=== PATIENT | male | born 1950 | race Hispanic/Latino ===

== ENCOUNTER 2019-06-25 14:22 | Outpatient (CLI) | payer OTHER ==
--- NOTE | 2019-06-25 16:14 | ULT ---
CAROTID ULTRASOUND: HISTORY: Syncope. COMPARISON: None. TECHNIQUE: Meade-scale, color-flow, and Doppler imaging with spectral wave-form analysis is performed in the ponce tid vertebral arteries. FINDINGS: Right carotid: No significant atherosclerotic disease. The peak systolic velocity of the common car otid artery is 81.7 cm per second. The peak systolic velocity in the internal carotid artery is 77.2 cm per second. Systolic ICA to CCA ratio is 0.94. Left carotid: No significant atherosclerotic disease. The peak systolic velocity in the common ponce tid artery is 79.9 cm per second. The peak systolic velocity in the internal carotid artery is 60.4 cm per second. Systolic ICA to CCA ratio is 0.76. Antegrade flow in both vertebral arteries. IMPRESSION: No sonographic evidence of hemodynamically significant stenosis. POS: OFF
== END 2019-06-25 14:23 | disposition home or self-care (01) ==
LOC: BICULT 14:22
PROVIDERS: ATTEND Family Medicine
DX: R55 Syncope and collapse (principal)
CPT/HCPCS: 93880

== ENCOUNTER 2019-10-17 14:06 | Outpatient (CLI) | payer OTHER ==
--- NOTE | 2019-10-17 14:35 | RAD ---
PA AND LATERAL CHEST: 10/17/19 HISTORY: Dyspnea. COMPARISON: 08/02/13 study. Heart size is within normal limits. Aorta is mildly tortuous. The lungs are clear of infiltrates. No pulmonary nodules. Arthritic changes of the spine are noted. IMPRESSION: No active intrathoracic disease. Stable chest. POS: [facility]
== END 2019-10-17 14:07 | disposition home or self-care (01) ==
LOC: RAD 14:06
PROVIDERS: ATTEND Internal Medicine Critical Care Medicine
DX: R06.00 Dyspnea, unspecified (principal)
CPT/HCPCS: 71046

== ENCOUNTER 2019-12-13 18:30 | Outpatient (CLI) | payer MEDICARE, OTHER | END 2019-12-13 18:31 | disposition home or self-care (01) | LOC: SLEEPLAB 18:30 | PROVIDERS: ATTEND Internal Medicine Critical Care Medicine | DX: G47.33 Obstructive sleep apnea (adult) (pediatric) (principal); G47.31 Primary central sleep apnea | CPT/HCPCS: 95806 ==

== ENCOUNTER 2020-10-14 06:42 | Outpatient (CLI) | payer MEDICARE ==
[2020-10-14 11:41] LABS: Hemoglobin 14.9 g/dL (14.0-18.0); Mean Corpuscular HGB CONC 34.2 G/DL (32.0-36.0); Mean Corpuscular Hemoglobin 32.2 PG (27.0-33.0); Mean Corpuscular Volume 94.2 fl (80.0-100.0); Mean Platelet Volume 9.7 fl (7.4-10.4); Platelet Count 242 10x3/uL (130-400); Red Blood Cell (RBC) Count 4.63 10x6/uL (4.40-5.80); White Blood Cell (WBC) Count 6.5 10x3/uL (4.5-11.0)
[2020-10-14 11:43] LABS: Clarity Clear (Clear); Specific Gravity, Urine 1.015 (1.002-1.036)
[2020-10-14 11:44] LABS: Bilirubin Neg (Negative); Blood, Urine Negative (Negative); Glucose, Urine (Dipstick) Normal (Negative); Ketone, Urine Negative (Negative); Leukocyte Negative (Negative); Nitrite Negative (Negative); Protein, Urine (Dipstick) Negative (Neg-Trace); Urobilinogen Normal mg/dL (Less than 2); pH, Urine 6.5 (5.0-9.0)
[2020-10-14 12:04] LABS: Anion Gap 11 mmol/L (10-20); BUN (Urea Nitrogen) 13 mg/dL (8.4-25.7); Calc. Creatinine Clearance 0 mL/min (70-130); Calcium 9.1 mg/dL (7.8-10.44); Carbon Dioxide 29 mmol/L (23-31); Chloride 105 mmol/L (98-107); Estimated GFR-MDRD Greater than 90; Glucose 97 mg/dL (80-115); Potassium 3.7 mmol/L (3.5-5.1); Sodium 141 mmol/L (136-145)
[2020-10-14 12:07] LABS: RBC/HPF None Seen HPF (0-3); Squamous Epithelial None Seen HPF (0-3); WBC/HPF None Seen HPF (0-3)
[2020-10-14 12:08] LABS: Bacteria/HPF None Seen HPF (None Seen)
[2020-10-15 03:02] LABS: SARS-CoV-2 MS2 Positive; SARS-CoV-2 N Gene Negative; SARS-CoV-2 S Gene Negative; SARS-CoV-2 by NAA Not Detected (NotDetected); SARS-CoV-2 orf1ab Negative
--- NOTE | 2020-10-15 07:10 | EKG ---
Test Reason : PREOP Blood Pressure : / mmHG Vent. Rate : 076 BPM Atrial Rate : 076 BPM P-R Int : 142 ms QRS Dur : 086 ms QT Int : 372 ms P-R-T Axes : 060 000 049 degrees QTc Int : 418 ms Normal sinus rhythm Normal ECG Confirmed by DR. Kelly GARCIA ([id number]) on 10/15/2020 7:10:31 AM Referred By: NADJA Confirmed By:DR. Kelly GARCIA
== END 2020-10-14 06:43 | disposition home or self-care (01) ==
LOC: LABBT 06:42
PROVIDERS: ATTEND Urology
DX: Z01.818 Encounter for other preprocedural examination (principal); N40.0 Benign prostatic hyperplasia without lower urinary tract symptoms; Z20.828 Contact with and (suspected) exposure to other viral communicable diseases
CPT/HCPCS: 80048; 81001; 85027; 87086; 93005; U0003; 87635; 93010

== ENCOUNTER 2020-10-17 06:03 | Day surgery (SDC) | payer MEDICARE ==
[2020-10-16 10:23] VITALS: BMI 29.0
[2020-10-17] MEDS ORDERED: Levofloxacin 500 mg/D5W 100 ml Premix Bag ONE (06:20)
[2020-10-17] MEDS ORDERED: Propofol 1,000 MG/100 ML VIAL IV ONE (06:35)
[2020-10-17] MEDS ORDERED: Midazolam HCl 2 mg/2 ml Vial ONE (06:35)
[2020-10-17] MEDS ORDERED: Fentanyl 100 MCG/2 ML VIAL ONE (06:35)
--- NOTE | 2020-10-17 08:40 | OP ---
DATE OF PROCEDURE: 10/17/2020 PREOPERATIVE DIAGNOSIS: Enlarged prostate with lower urinary tract symptoms. POSTOPERATIVE DIAGNOSIS: Enlarged prostate with lower urinary tract symptoms. PROCEDURE: UroLift. ANESTHESIA: TIVA. COMPLICATIONS: None. ESTIMATED BLOOD LOSS: Minimal. SPECIMEN: None. FINDINGS: Large median lobe, loose bulbar stricture. DESCRIPTION OF PROCEDURE: After informed consent, the patient was taken to the operating room, transferred to the table on his own power. Anesthesia was established. A time-out was performed showing the correct patient, site, and procedure. Preoperative antibiotics were administered. He was prepped and draped in the lithotomy position. The 20-[place] cystoscope was advanced through the urethra noting a loose bulbar stricture easily passed by the scope. The prostate was then entered noting coapting lateral lobes and a large median lobe. The bladder was entered and systematically examined noting no mucosal abnormalities, he does have moderate trabeculation with cellules throughout. The UroLift delivery device was inserted and the bladder neck treated left side, then right side. We then treated the distal prostate coming back to the verumontanum treating again left side, then right. He had an area of persistent obstruction in the mid prostate on the left side, which was also treated. I then turned my attention to his median lobe affixing the base of the median lobe to the right lateral lobe and then deploying 2 more implants further up on the median lobe until it was fixed out of the way with no persistent obstruction. On further examination, he then had persistent obstruction at the bladder neck on the left side and so a final implant was placed here. Total number of implants nine. At the end of the case, an excellent anterior channel. His bladder was drained and then refilled with about 150 to 200 mL of saline to allow for a void trial in recovery. He was awoken from anesthesia, transferred back to his hospital bed and taken to PACU in stable condition, where he will discharge home upon recovery. Job ID: [id number]
[2020-10-17] MEDS ORDERED: ePHEDrine 50 MG/ML VIAL ONE (10:21)
[2020-10-17] MEDS ORDERED: PHENYLEPHRINE-NS 100 MCG/ML 10 ML SYRINGE ONE (10:21)
== END 2020-10-17 09:40 | disposition home or self-care (01) ==
LOC: SDC 06:03
PROVIDERS: ATTEND Urology
PROC: 0T7D8DZ Dilation of Urethra with Intraluminal Device, Via Natural or Artificial Opening Endoscopic (ICD-10-PCS; principal; 2020-10-17)
DX: N40.1 Benign prostatic hyperplasia with lower urinary tract symptoms (principal); N13.8 Other obstructive and reflux uropathy; N35.912 Unspecified bulbous urethral stricture, male; N32.89 Other specified disorders of bladder; N52.01 Erectile dysfunction due to arterial insufficiency; Z87.891 Personal history of nicotine dependence; Z79.82 Long term (current) use of aspirin; Z79.899 Other long term (current) drug therapy
CPT/HCPCS: C1889; C9740; J1956; J2250; J2704; J3010; J3490

== ENCOUNTER 2021-02-26 15:29 | Observation (INO) | payer MEDICARE ==
[~2021-02-26 15:29] MED LIST: Iopamidol-370 76% 500 ML 1 ML ONE
[2021-02-26 16:42] LABS: #Basophils 0.1 thou/uL (0.0-0.2); #Eosinphils 0.3 thou/uL (0.0-0.7); #Lymphocytes 2.3 thou/uL (1.20-3.40); #Monocytes 0.5 thou/uL (0.11-0.59); #Neutrophils 5.3 thou/uL (1.40-6.50); %Basophils 0.7 % (0.0-1.0); %Eosinophils 3.8 % (0.0-10.0); %Lymphocytes 27.1 % (21.0-51.0); %Monocytes 5.9 % (0.0-10.0); %Neutrophils 62.5 % (42.0-75.0); Hemoglobin 14.7 g/dL (14.0-18.0); Mean Corpuscular HGB CONC 32.5 g/dL (32.0-36.0); Mean Corpuscular Hemoglobin 30.4 pg (27.0-31.0); Mean Corpuscular Volume 93.6 fL (78.0-98.0); Mean Platelet Volume 7.6 fL (7.4-10.4); Platelet Count 257 thou/uL (130-400); RBC Distribution Width 13.2 % (11.5-14.5); Red Blood Cell (RBC) Count 4.86 mill/uL (4.70-6.10); White Blood Cell (WBC) Count 8.5 thou/uL (4.8-10.8)
[2021-02-26] MEDS ORDERED: Ondansetron ODT 4 MG TAB ONE (17:03)
[2021-02-26] MEDS ORDERED: Meclizine HCl 25 MG TAB ONE (17:03)
[2021-02-26 17:07] LABS: ALT (SGPT) 23 U/L (8-55); AST (SGOT) 20 U/L (5-34); Albumin 4.3 g/dL (3.4-4.8); Alkaline Phosphatase 91 U/L (40-110); Anion Gap 16 mmol/L (10-20); BUN (Urea Nitrogen) 14 mg/dL (8.4-25.7); Bilirubin, Total 0.3 mg/dL (0.2-1.2); CK (CPK) 72 U/L (30-200); Calc. Creatinine Clearance 0 mL/min (70-130); Calcium 9.6 mg/dL (7.8-10.44); Carbon Dioxide 21 mmol/L (23-31); Chloride 106 mmol/L (98-107); Globulin 2.6 g/dL (2.4-3.5); Glucose 136 mg/dL (80-115); Protein, Total 6.9 g/dL (5.8-8.1); Sodium 139 mmol/L (136-145)
[2021-02-26] MEDS ORDERED: Aspirin Chewable 81 MG TAB ONE (19:45)
[2021-02-26] MEDS ORDERED: Nitroglycerin 2% Ointment 1 INCH/1 GM Packet ONE (19:45)
[2021-02-26] MEDS ORDERED: Calcium Carbonate 500 MG ChewTAB PO PRN (21:13)
[2021-02-26] MEDS ORDERED: Nitroglycerin 0.4 MG TAB (25 Tab Bottle) SL PRN (21:13)
[2021-02-26] MEDS ORDERED: Ondansetron ODT 4 MG TAB PO PRN (21:13)
[2021-02-26 21:14] VITALS: BMI 28.7
[2021-02-26 21:20] LABS: Hemoglobin A1c 6.5 % (4.0-6.0)
[2021-02-26] MEDS ORDERED: Acetaminophen 500 MG TAB PO PRN (22:14)
[2021-02-26] MEDS ORDERED: Benzonatate 100 MG CAP PO SCH (22:15)
[2021-02-26] MEDS ORDERED: Benzonatate 100 MG CAP PO PRN (22:45)
[2021-02-26 23:15] LABS: Troponin I 0.015 ng/mL (< 0.028)
[2021-02-26] MEDS ORDERED: Tamsulosin HCl 0.4 MG CAP PO SCH (23:15)
[2021-02-26] MEDS ORDERED: cloNIDine 0.1 MG TAB PO SCH (23:15)
[2021-02-26] MEDS ORDERED: Zinc Sulfate 220 MG CAP PO SCH (23:15)
[2021-02-26] MEDS ORDERED: Acetaminophen ER (8hr) 650 MG TAB PO SCH (23:15)
[2021-02-26] MEDS ORDERED: Fish Oil 1,000 MG CAP PO SCH (23:15)
[2021-02-26] MEDS ORDERED: Niacin 500 MG TAB PO SCH (23:15)
[2021-02-27] MEDS ORDERED: HYDROcodone/Acetaminophen 5/325 mg Tablet PO PRN ×2 (01:48→08:26)
[2021-02-27 01:53] LABS: SARS-CoV-2 PCR by NAA Not Detected (NotDetected)
[2021-02-27] MEDS ORDERED: Dextrose 5% in Water 1,000 ML IV PRN (02:18)
[2021-02-27] MEDS ORDERED: HumaLOG 300 UNITS/3 ML VIAL SC PRN ×2 (02:18)
[2021-02-27] MEDS ORDERED: Dextrose 50% Abboject 50 ML SYRINGE SLOW IVP PRN (02:18)
[2021-02-27] MEDS ORDERED: Docusate 100 MG CAP PO PRN (02:58)
[2021-02-27 05:26] LABS: #Eosinphils 0.3 thou/uL (0.0-0.7); #Lymphocytes 2.9 thou/uL (1.20-3.40); #Monocytes 0.7 thou/uL (0.11-0.59); #Neutrophils 4.1 thou/uL (1.40-6.50); %Basophils 0.6 % (0.0-1.0); %Eosinophils 4.2 % (0.0-10.0); %Lymphocytes 35.6 % (21.0-51.0); %Monocytes 8.7 % (0.0-10.0); %Neutrophils 50.9 % (42.0-75.0); Hemoglobin 13.6 g/dL (14.0-18.0); Mean Corpuscular HGB CONC 32.6 g/dL (32.0-36.0); Mean Corpuscular Hemoglobin 30.4 pg (27.0-31.0); Mean Corpuscular Volume 93.3 fL (78.0-98.0); Mean Platelet Volume 7.6 fL (7.4-10.4); Platelet Count 234 thou/uL (130-400); RBC Distribution Width 13.1 % (11.5-14.5); Red Blood Cell (RBC) Count 4.46 mill/uL (4.70-6.10); White Blood Cell (WBC) Count 8.1 thou/uL (4.8-10.8)
[2021-02-27 05:48] LABS: Anion Gap 13 mmol/L (10-20); BUN (Urea Nitrogen) 12 mg/dL (8.4-25.7); Calc. Creatinine Clearance 112 mL/min (70-130); Carbon Dioxide 25 mmol/L (23-31); Cardiac Risk 7.2 (Less than 4.5); Chloride 105 mmol/L (98-107); Cholesterol 210 mg/dl (< 200 Desired); Glucose 134 mg/dL (80-115); HDL Cholesterol 29 mg/dL (>60 Neg Risk); LDL Cholesterol, Calculated 130 mg/dL; Potassium 3.6 mmol/L (3.5-5.1); Sodium 139 mmol/L (136-145); Triglycerides 253 mg/dL (Less than 150)
[2021-02-27] MEDS ORDERED: [UNRECOGNIZED DRUG - OTHER] PO SCH (09:00)
[2021-02-27] MEDS ORDERED: Vitamin E 400 UNITS CAP PO SCH (09:00)
[2021-02-27] MEDS ORDERED: Lisinopril 10 MG TAB PO SCH (09:00)
[2021-02-27] MEDS ORDERED: cloNIDine 0.1 MG TAB PO SCH (09:00)
[2021-02-27] MEDS ORDERED: Aspirin 81 mg Enteric Coated Tablet PO SCH (09:00)
[2021-02-27] MEDS ORDERED: QUERCETIN DIHYDRATE 1 GM PO SCH (09:00)
[2021-02-27] MEDS ORDERED: Enoxaparin Sodium 40 MG/0.4 ML SYRINGE SC SCH (09:00)
[2021-02-27] MEDS ORDERED: DULoxetine 60 MG CAP PO SCH (09:00)
[2021-02-27] MEDS ORDERED: Ascorbic Acid 500 mg Chewable Tablet PO SCH (09:00)
[2021-02-27] MEDS ORDERED: Loratadine 10 MG TAB PO SCH (09:00)
[2021-02-27] MEDS ORDERED: RED YEAST RICE 600 MG PO SCH (09:00)
[2021-02-27] MEDS ORDERED: Calcium Carbonate 600 MG TAB PO SCH (09:00)
[2021-02-27] MEDS ORDERED: Aspirin Chewable 81 MG TAB PO SCH (09:00)
[2021-02-27] MEDS ORDERED: Acetaminophen ER (8hr) 650 MG TAB PO SCH (09:00)
[2021-02-27] MEDS ORDERED: GLUC PO SCH (09:00)
[2021-02-27] MEDS ORDERED: Cholecalciferol 1,000 UNITS (25 MCG) TAB PO SCH (09:00)
[2021-02-27] MEDS ORDERED: Fish Oil 1,000 MG CAP PO SCH (09:00)
[2021-02-27] MEDS ORDERED: Regadenoson 0.4 MG/5 ML SYRINGE ONE (09:25)
[2021-02-27 13:01] VITALS: BP 133/80; TEMP 98.5
[2021-02-27] MEDS ORDERED: Turmeric Root Extract [Turmeric Curcumin] 500 MG Capsule PO SCH (21:00)
[2021-02-27] MEDS ORDERED: Atorvastatin Calcium 40 MG TAB PO SCH (21:00)
[2021-02-27] MEDS ORDERED: Tamsulosin HCl 0.4 MG CAP PO SCH (21:00)
[2021-02-27] MEDS ORDERED: Zinc Sulfate 220 MG CAP PO SCH (21:00)
[2021-02-27] MEDS ORDERED: Niacin 500 MG TAB PO SCH (21:00)
== END 2021-02-27 14:39 | disposition home or self-care (01) ==
LOC: ERS 15:29 → 2SW 19:42
PROVIDERS: ADMIT Family Medicine; ATTEND Family Medicine
DX: G44.309 Post-traumatic headache, unspecified, not intractable (principal); F07.81 Postconcussional syndrome; R07.89 Other chest pain; I10 Essential (primary) hypertension; E11.9 Type 2 diabetes mellitus without complications; K21.9 Gastro-esophageal reflux disease without esophagitis; N40.0 Benign prostatic hyperplasia without lower urinary tract symptoms; J30.2 Other seasonal allergic rhinitis; M17.0 Bilateral primary osteoarthritis of knee; E78.5 Hyperlipidemia, unspecified; Z87.891 Personal history of nicotine dependence; Z79.82 Long term (current) use of aspirin; Z79.899 Other long term (current) drug therapy; Z20.822 Contact with and (suspected) exposure to COVID-19
CPT/HCPCS: 70450; 71045; 71275; 72125; 78452; 80048; 80053; 80061; 82550; 82962; 83036; 84484 ×2; 85025 ×2; 85379; 93005; 93017; 94760; 99285; A9500; G0378 ×3; U0003; U0005; 36415; 36416; 87635; J2785; Q0162; Q9967

== ENCOUNTER 2021-04-16 09:21 | Outpatient (CLI) | payer MEDICARE | END 2021-04-16 09:22 | disposition home or self-care (01) | LOC: BICRAD 09:21 | PROVIDERS: ATTEND Anesthesiology Pain Medicine | DX: M46.1 Sacroiliitis, not elsewhere classified (principal); M16.12 Unilateral primary osteoarthritis, left hip ==

== ENCOUNTER 2021-06-18 13:44 | Outpatient (CLI) | payer MEDICARE ==
[2021-06-18 15:22] LABS: #Eosinphils 0.4 10x3/uL (0.0-0.5); #Monocytes 0.6 10x3/uL (0.0-1.1); #Neutrophils 6.1 10x3/uL (1.5-8.4); %Basophils 0.3 % (0.0-2.0); %Eosinophils 4.3 % (0.0-6.0); %Lymphocytes 25.7 % (18.0-47.0); %Monocytes 6.4 % (0.0-10.0); %Neutrophils 63.1 % (40.0-75.0); Hemoglobin 15.5 g/dL (13.5-17.5); Mean Corpuscular HGB CONC 33.2 g/dL (32.0-36.0); Mean Corpuscular Hemoglobin 30.3 pg (27.0-33.0); Mean Corpuscular Volume 91.2 fl (81.2-95.1); Mean Platelet Volume 10.4 fl (7.4-10.4); Platelet Count 239 10x3/uL (150-450); RBC Distribution Width 13.3 % (11.5-14.5); Red Blood Cell (RBC) Count 5.12 10x6/uL (4.32-5.72); White Blood Cell (WBC) Count 9.7 10x3/uL (3.5-10.5)
[2021-06-18 15:24] LABS: Bilirubin Neg (Negative); Blood, Urine Negative (Negative); Clarity Clear (Clear); Glucose, Urine (Dipstick) Normal (Negative); Ketone, Urine Negative (Negative); Leukocyte Negative (Negative); Nitrite Negative (Negative); Protein, Urine (Dipstick) 15 mg/dl (Neg-Trace); Specific Gravity, Urine 1.025 (1.002-1.036); Urobilinogen Normal mg/dL (Less than 2)
[2021-06-18 15:27] LABS: Prothrombin Time 11.1 sec (9.5-12.1)
[2021-06-18 15:37] LABS: Bacteria/HPF None Seen HPF (None Seen); RBC/HPF 0-3 HPF (0-3); Squamous Epithelial 0-3 HPF (0-3); WBC/HPF None Seen HPF (0-3)
[2021-06-18 15:53] LABS: Anion Gap 13 mmol/L (10-20); BUN (Urea Nitrogen) 15 mg/dL (8.4-25.7); Calc. Creatinine Clearance 0 mL/min (70-130); Carbon Dioxide 29 mmol/L (23-31); Chloride 104 mmol/L (98-107); Sodium 142 mmol/L (136-145)
[2021-06-18 15:54] LABS: Calcium 10.3 mg/dL (7.8-10.44); Glucose 144 mg/dL (80-115)
[2021-06-19 12:08] LABS: SARS-CoV-2 PCR by NAA Not Detected (NotDetected)
== END 2021-06-18 13:45 | disposition home or self-care (01) ==
LOC: LABBT 13:44
PROVIDERS: ATTEND Orthopaedic Surgery
DX: Z01.818 Encounter for other preprocedural examination (principal); M16.11 Unilateral primary osteoarthritis, right hip; Z20.822 Contact with and (suspected) exposure to COVID-19
CPT/HCPCS: 80048; 81001; 85025; 85610; 87081; 93005; U0003; U0005; 93010

== ENCOUNTER 2021-06-23 05:33 | Inpatient (IN) | payer MEDICARE ==
[2021-06-23] MEDS ORDERED: Midazolam HCl 2 mg/2 ml Vial ONE ×2 (06:05→06:30)
[2021-06-23] MEDS ORDERED: Fentanyl 100 MCG/2 ML VIAL ONE ×6 (06:05→10:11)
[2021-06-23] MEDS ORDERED: Tranexamic Acid 1,000 MG/10 ML VIAL ONE (06:29)
[2021-06-23] MEDS ORDERED: Vancomycin 1 GM/200 ML BAG ONE (06:29)
[2021-06-23] MEDS ORDERED: Zolpidem Tartrate 5 MG TAB PO PRN ×2 (06:50→10:15)
[2021-06-23] MEDS ORDERED: Ondansetron PF 4 MG/2 ML Vial IVP PRN ×2 (06:50→10:15)
[2021-06-23] MEDS ORDERED: diphenhydrAMINE 25 MG CAP PO PRN (06:50)
[2021-06-23] MEDS ORDERED: HYDROcodone/Acetaminophen 10/325 mg Tablet PO PRN ×2 (06:50)
[2021-06-23] MEDS ORDERED: Promethazine HCl 25 MG/ML VIAL IM PRN ×3 (06:50→10:15)
[2021-06-23] MEDS ORDERED: Acetaminophen 325 MG TAB PO PRN ×2 (06:50→10:09)
[2021-06-23] MEDS ORDERED: PROPOFOL 200 MG/20 ML VIAL ONE (07:30)
[2021-06-23] MEDS ORDERED: Dexamethasone 20 MG/5 ML VIAL ONE (07:30)
[2021-06-23] MEDS ORDERED: Rocuronium Bromide 10 MG/ML (10ML VIAL) ONE (07:30)
[2021-06-23] MEDS ORDERED: Lidocaine 1% PF 5 ML VIAL ONE (07:30)
[2021-06-23] MEDS ORDERED: Lidocaine 1.5% w/Epi 1:200K 30 ML VIAL (Epid Use) ONE (07:30)
[2021-06-23] MEDS ORDERED: Ondansetron PF 4 MG/2 ML Vial ONE (07:30)
[2021-06-23] MEDS ORDERED: Promethazine HCl 25 MG/ML VIAL IVPB PRN (08:18)
[2021-06-23] MEDS ORDERED: HYDROmorphone 2 MG/ML VIAL SLOW IVP PRN (08:18)
[2021-06-23] MEDS ORDERED: Lidocaine 1% w/Epinephrine 1:100K 20 ML VIAL ONE (08:43)
[2021-06-23] MEDS ORDERED: Ropivacaine 0.2% HCl/PF 20 ML ONE (08:45)
[2021-06-23] MEDS ORDERED: SUGAMMADEX SODIUM 200 MG/2 ML VIAL ONE (08:45)
[2021-06-23] MEDS ORDERED: Aspirin 81 mg Enteric Coated Tablet PO SCH (09:00)
[2021-06-23] MEDS ORDERED: Acetaminophen ER (8hr) 650 MG TAB PO SCH (09:00)
[2021-06-23] MEDS ORDERED: Naloxone HCl 0.4 mg/ml Vial IV PRN (10:15)
[2021-06-23] MEDS ORDERED: Naloxone HCl 0.4 mg/ml Vial IVP PRN (10:15)
[2021-06-23] MEDS ORDERED: diphenhydrAMINE 50 MG/ML VIAL IM PRN (10:15)
[2021-06-23] MEDS ORDERED: Hydrocerin (Eucerin) Cream 120 gm Jar TOP PRN (10:15)
[2021-06-23] MEDS ORDERED: Promethazine HCl 25 MG SUPP PR PRN (10:15)
[2021-06-23] MEDS ORDERED: Bupivacaine 0.25% 10 ML VIAL EPIDURAL PRN (10:15)
[2021-06-23] MEDS ORDERED: traMADol HCl 50 MG TAB PO PRN ×2 (10:15)
[2021-06-23] MEDS ORDERED: HYDROcodone/Acetaminophen 5/325 mg Tablet PO PRN ×2 (10:15)
[2021-06-23] MEDS: Ketorolac Tromethamine 30 MG/ML VIAL IVP SCH ×3 (10:52→23:00)
[2021-06-23] MEDS ORDERED: Ketorolac Tromethamine 30 MG/ML VIAL ONE (10:53)
[2021-06-23] MEDS: Cholecalciferol 1,000 UNITS (25 MCG) TAB PO SCH (13:30)
[2021-06-23] MEDS: Loratadine 10 MG TAB PO SCH (13:30)
[2021-06-23] MEDS: Ferrous Gluconate 324 MG TAB PO SCH ×2 (13:30→17:56)
[2021-06-23] MEDS: Aspirin 81 mg Enteric Coated Tablet PO SCH ×2 (13:30→20:43)
[2021-06-23] MEDS: Calcium Carbonate 600 MG TAB PO SCH (13:30)
[2021-06-23 13:59] VITALS: BMI 28.2
[2021-06-23] MEDS: CEFAZOLIN 2 GM in Premix Bag 1 BAG IVPB SCH ×2 (14:54→22:59)
[2021-06-23] MEDS: Calcium Carbonate 500 MG ChewTAB PO PRN (17:57)
[2021-06-23] MEDS ORDERED: Niacin 500 MG TAB PO SCH (21:30)
[2021-06-23] MEDS: Zinc Sulfate 220 MG CAP PO SCH (22:08)
[2021-06-23] MEDS: Fentanyl 5 mcg/Bup 0.075% Cadd 100 ML EPIDURAL SCH (23:00)
[2021-06-24] MEDS: diphenhydrAMINE 25 MG CAP PO PRN ×4 (03:47→17:53)
[2021-06-24] MEDS: Ketorolac Tromethamine 30 MG/ML VIAL IVP SCH ×4 (05:11→23:59)
[2021-06-24] MEDS: Calcium Carbonate 500 MG ChewTAB PO PRN (05:36)
[2021-06-24 06:59] LABS: Hemoglobin 13.1 g/dL (14.0-18.0); Mean Corpuscular HGB CONC 33.7 g/dL (32.0-36.0); Mean Corpuscular Volume 94.8 fL (78.0-98.0); Platelet Count 192 thou/uL (130-400); RBC Distribution Width 12.6 % (11.5-14.5); White Blood Cell (WBC) Count 11.5 thou/uL (4.8-10.8)
[2021-06-24] MEDS: Calcium Carbonate 600 MG TAB PO SCH (09:13)
[2021-06-24] MEDS: Cholecalciferol 1,000 UNITS (25 MCG) TAB PO SCH (09:13)
[2021-06-24] MEDS: Senokot S 8.6-50 MG TAB PO SCH ×2 (09:13→20:08)
[2021-06-24] MEDS: Loratadine 10 MG TAB PO SCH (09:13)
[2021-06-24] MEDS: Aspirin 81 mg Enteric Coated Tablet PO SCH ×2 (09:13→20:08)
[2021-06-24] MEDS: Multivitamin W/ Minerals 1 TAB PO SCH (09:14)
[2021-06-24] MEDS: Ferrous Gluconate 324 MG TAB PO SCH ×2 (09:14→17:53)
[2021-06-24] MEDS: Fentanyl 5 mcg/Bup 0.075% Cadd 100 ML EPIDURAL SCH (15:25)
[2021-06-24] MEDS: diphenhydrAMINE 50 MG/ML VIAL IVP PRN (20:08)
[2021-06-24] MEDS: Zinc Sulfate 220 MG CAP PO SCH (20:08)
[2021-06-24] MEDS ORDERED: Niacin 500 MG TAB PO SCH (21:00)
[2021-06-25] MEDS: diphenhydrAMINE 50 MG/ML VIAL IVP PRN ×2 (02:23→08:22)
[2021-06-25] MEDS: Ketorolac Tromethamine 30 MG/ML VIAL IVP SCH (05:27)
[2021-06-25] MEDS: Cholecalciferol 1,000 UNITS (25 MCG) TAB PO SCH (08:13)
[2021-06-25] MEDS: Loratadine 10 MG TAB PO SCH (08:13)
[2021-06-25] MEDS: Multivitamin W/ Minerals 1 TAB PO SCH (08:13)
[2021-06-25] MEDS: Calcium Carbonate 600 MG TAB PO SCH (08:13)
[2021-06-25] MEDS: Aspirin 81 mg Enteric Coated Tablet PO SCH (08:13)
[2021-06-25] MEDS: Ferrous Gluconate 324 MG TAB PO SCH (08:13)
[2021-06-25] MEDS: Senokot S 8.6-50 MG TAB PO SCH (08:13)
[2021-06-25 11:41] VITALS: BP 110/71; TEMP 98.5
== END 2021-06-25 13:15 | disposition home or self-care (01) | DRG 470 ==
LOC: SDC 05:33 → SJJU 13:24
PROVIDERS: ADMIT Orthopaedic Surgery; ATTEND Orthopaedic Surgery
PROC: 0SR9039 Replacement of Right Hip Joint with Ceramic Synthetic Substitute, Cemented, Open Approach (ICD-10-PCS; principal; 2021-06-23)
DX: M16.11 Unilateral primary osteoarthritis, right hip (principal); E78.5 Hyperlipidemia, unspecified; I10 Essential (primary) hypertension; N40.0 Benign prostatic hyperplasia without lower urinary tract symptoms; Z79.899 Other long term (current) drug therapy; Z79.82 Long term (current) use of aspirin; Z87.891 Personal history of nicotine dependence
CPT/HCPCS: 36415; 85027; J0690; J1100; J1200; J1885; J2001; J2250; J2405; J2704; J2795; J3010; J3370; Q0163

== ENCOUNTER 2021-12-31 02:02 | Inpatient (IN) | payer MEDICARE, OTHER ==
[2021-12-31 02:39] LABS: #Eosinphils 0.7 thou/uL (0.0-0.7); #Monocytes 0.5 thou/uL (0.11-0.59); #Neutrophils 9.5 thou/uL (1.40-6.50); %Basophils 0.1 % (0.0-1.0); %Eosinophils 5.2 % (0.0-10.0); %Lymphocytes 15.6 % (21.0-51.0); %Neutrophils 75.1 % (42.0-75.0); Hemoglobin 14.9 g/dL (14.0-18.0); Mean Corpuscular HGB CONC 34.6 g/dL (32.0-36.0); Mean Corpuscular Hemoglobin 31.7 pg (27.0-31.0); Mean Corpuscular Volume 91.6 fL (78.0-98.0); Platelet Count 196 thou/uL (130-400); White Blood Cell (WBC) Count 12.6 thou/uL (4.8-10.8)
[2021-12-31 02:55] LABS: Bilirubin Negative (Negative); Blood, Urine Negative (Negative); Clarity Clear (Clear); Glucose, Urine (Dipstick) Normal (Negative); Ketone, Urine Negative (Negative); Leukocyte Negative Leu/uL (Negative); Nitrite Negative (Negative); Protein, Urine (Dipstick) Negative (Neg-Trace); Urobilinogen Normal mg/dL (Less than 2)
[2021-12-31 02:57] LABS: ALT (SGPT) 19 U/L (8-55); AST (SGOT) 21 U/L (5-34); Alkaline Phosphatase 83 U/L (40-110); Anion Gap 10 mmol/L (10-20); BUN (Urea Nitrogen) 12 mg/dL (8.4-25.7); Bilirubin, Total 0.3 mg/dL (0.2-1.2); Calc. Creatinine Clearance 0 mL/min (70-130); Calcium 9.3 mg/dL (7.8-10.44); Carbon Dioxide 26 mmol/L (23-31); Chloride 104 mmol/L (98-107); Globulin 2.8 g/dL (2.4-3.5); Glucose 144 mg/dL (80-115); Lipase 9 U/L (8-78); Potassium 3.7 mmol/L (3.5-5.1); Protein, Total 6.8 g/dL (5.8-8.1); Sodium 136 mmol/L (136-145)
[2021-12-31] MEDS ORDERED: Morphine 4 MG/ML VIAL ONE (03:53)
[2021-12-31] MEDS ORDERED: Piperacillin/Tazobactam 4.5 GM VIAL ONE (04:03)
[2021-12-31] MEDS ORDERED: Morphine 4 MG/ML VIAL SLOW IVP PRN (05:06)
[2021-12-31] MEDS ORDERED: Ondansetron ODT 4 MG TAB SL PRN (05:15)
[2021-12-31] MEDS ORDERED: Ondansetron PF 4 MG/2 ML Vial IVP PRN (05:15)
[2021-12-31 05:33] LABS: SARS-CoV-2 NAA Rapid Test Not Detected (NotDetected)
[2021-12-31 05:45] VITALS: BMI 29.5
[2021-12-31 06:33] VITALS: BP 112/79; TEMP 98.8
[2021-12-31] MEDS: Dextrose 5 % And 0.9 % NaCl 1,000 ML IV SCH ×2 (06:53→17:06)
[2021-12-31] MEDS ORDERED: Piperacillin/Tazobactam 3.375 GM VIAL ONE (08:04)
[2021-12-31] MEDS ORDERED: Sodium Chloride 0.9% 100 ML ONE (08:04)
[2021-12-31] MEDS: Piperacillin/Tazobactam 3.375 GM in Sodium Chloride 0.9% 100 ML IVPB SCH ×2 (08:47→15:44)
[2021-12-31] MEDS ORDERED: Iopamidol 370 76% 100 ML VIAL ONE (08:51)
[2021-12-31] MEDS ORDERED: Fentanyl 250 MCG/5 ML VIAL ONE (09:50)
[2021-12-31] MEDS ORDERED: Bupivacaine 0.25% HCL 30 ML VIAL ONE (09:54)
[2021-12-31] MEDS ORDERED: Xylocaine 1% w/ Epi 1:100K 10 ML VIAL ONE (09:54)
[2021-12-31] MEDS ORDERED: Glycopyrrolate 0.2 MG/ML 5 ML SYRINGE ONE (10:14)
[2021-12-31] MEDS ORDERED: Dexamethasone 20 MG/5 ML VIAL ONE (10:14)
[2021-12-31] MEDS ORDERED: PROPOFOL 200 MG/20 ML VIAL ONE (10:14)
[2021-12-31] MEDS ORDERED: PHENYLEPHRINE-NS 100 MCG/ML 10 ML SYRINGE ONE (10:14)
[2021-12-31] MEDS ORDERED: Rocuronium Bromide 10 MG/ML (10ML VIAL) ONE (10:14)
[2021-12-31] MEDS ORDERED: Lidocaine 1% PF 5 ML VIAL ONE (10:14)
[2021-12-31] MEDS ORDERED: Ondansetron PF 4 MG/2 ML Vial ONE (10:14)
[2021-12-31] MEDS ORDERED: Succinylcholine 200 MG/10 ml SYRINGE FS ONE (10:14)
[2021-12-31] MEDS ORDERED: Promethazine HCl 25 MG/ML VIAL IVPB PRN (11:50)
[2021-12-31] MEDS ORDERED: Ketorolac Tromethamine 30 MG/ML VIAL IVP PRN (11:50)
[2021-12-31] MEDS ORDERED: Promethazine HCl 25 MG/ML VIAL IM PRN (11:50)
[2021-12-31] MEDS ORDERED: Meperidine HCl/PF 25 MG/ML VIAL SLOW IVP PRN (11:50)
[2021-12-31] MEDS ORDERED: Ondansetron HCl/PF 4 MG/2 ML Vial IVP PRN (11:50)
[2021-12-31] MEDS ORDERED: Ibuprofen 600 MG TAB PO PRN (13:08)
[2021-12-31] MEDS ORDERED: HYDROcodone/Acetaminophen 5/325 mg Tablet PO PRN ×2 (13:08)
[2022-01-03] MEDS ORDERED: FLU VACC QS2021-22(65YR UP)/PF 240 MCG/0.7 ML SYRINGE IM ONE (09:00)
== END 2021-12-31 18:15 | disposition home or self-care (01) | DRG 343 ==
LOC: ERS 02:02 → SURG A 04:04
PROVIDERS: ADMIT Specialist; ATTEND Specialist
PROC: 0DTJ4ZZ Resection of Appendix, Percutaneous Endoscopic Approach (ICD-10-PCS; principal; 2021-12-31)
DX: K35.80 Unspecified acute appendicitis (principal); Z20.822 Contact with and (suspected) exposure to COVID-19; Z96.641 Presence of right artificial hip joint; K21.9 Gastro-esophageal reflux disease without esophagitis; Z79.899 Other long term (current) drug therapy; Z83.3 Family history of diabetes mellitus; Z82.49 Family history of ischemic heart disease and other diseases of the circulatory system
CPT/HCPCS: 36415; 74177; 80053; 81003; 83605; 83690; 84484; 85025; 87040; 88304; 93005; J1100; J2270; J2405; J2543; J2704; J3010; J3490; J7042; Q9967; S0020; U0002